=== PATIENT | female | born 1970 | race Caucasian/White ===

== ENCOUNTER 2016-09-28 10:51 | Day surgery (SDC) | payer BC ==
[~2016-09-28] VITALS: Ht 170.2 cm; Wt 65.7 kg
[~2016-09-28 10:51] MED LIST: FISH OIL 1,0001 EAC7 PO; MULTI-VITAMIN1 EAC4 PO
[2016-09-28 11:34] VITALS: BP 154/79
[2016-09-28] MEDS ORDERED: IBUPROFEN800 MG PO (14:39)
[2016-09-28] MEDS ORDERED: HYDROCODON-ACE1 EAC7 PO (14:39)
[2016-09-28 15:14] VITALS: BP 142/81
[2016-09-28 16:15] VITALS: BP 135/84
== END 2016-09-28 16:22 | disposition home or self-care (01) ==
LOC: SDC 10:51
PROC: 0UDB8ZX Extraction of Endometrium, Via Natural or Artificial Opening Endoscopic, Diagnostic (ICD-10-PCS; principal; 2016-09-28)
DX: N93.0 Postcoital and contact bleeding (principal); N85.4 Malposition of uterus; D25.1 Intramural leiomyoma of uterus; J45.909 Unspecified asthma, uncomplicated; E78.5 Hyperlipidemia, unspecified; Z82.49 Family history of ischemic heart disease and other diseases of the circulatory system; Z83.3 Family history of diabetes mellitus; Z91.010 Allergy to peanuts; Z91.018 Allergy to other foods
CPT/HCPCS: 88305; J1885; J2250; J2405; J3010